=== PATIENT | female | born 1955 | race Caucasian/White ===

== ENCOUNTER → 2021-03-24 09:45 | Outpatient (BNVA) | payer MEDICARE, OTHER, SELFPAY | PROVIDERS: PCP Student in an Organized Health Care Education/Training Program; Visit Provider Internal Medicine Rheumatology | DX: M15.4 Erosive (osteo)arthritis (principal); R76.8 Other specified abnormal immunological findings in serum; Z79.899 Other long term (current) drug therapy; Z11.59 Encounter for screening for other viral diseases; Z11.1 Encounter for screening for respiratory tuberculosis; M19.90 Unspecified osteoarthritis, unspecified site; M45.9 Ankylosing spondylitis of unspecified sites in spine | CPT/HCPCS: 36415; 71046; 72100; 72202; 73130; 73630; 80076; 82306; 82565; 85651; 86140; 86431; 86480; 86704; 86803; 86812; 87340; 99204 ==

== ENCOUNTER 2021-03-24 11:50 | Outpatient (CLI) | payer MEDICARE, OTHER, SELFPAY ==
--- NOTE | 2021-03-24 12:10 | XR_ITS ---
WS: [id number] XR sacroiliac jts m 3V 80739 REASON FOR EXAM: Z79.899 - Other [place] (current[facility] drug therapy FINDINGS: Sacroiliac joints are well defined with thin cortical margins outlining normal appearing joint space and no subchondral abnormality. There is osteophytic spurring and subchondral sclerosis in the acetabulum of both hips. No focal or diffuse bony abnormality. XR/XR sacroiliac jts m 3V 40414 IMPRESSION: No significant abnormality.
--- NOTE | 2021-03-24 12:10 | XR_ITS ---
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 Degenerative disc changes at L4-5 and L5-S1. Facet DJD at all level s. XR/XR lumbar spine 2-3V* 49730 IMPRESSION: 1. No fracture or malalignment. 2. Degenerative changes.
--- NOTE | 2021-03-24 12:10 | XR_ITS ---
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 Normal soft tissues. Minimal degenerative changes in the IP joints and mi dfoot joints. XR/XR foot LT min 3V* 56032 IMPRESSION: 1. Minimal degenerative changes. No fracture or other significant finding.
--- NOTE | 2021-03-24 12:10 | XR_ITS ---
WS: [id number] XR hand LT min 3V* [id number] REASON FOR EXAM: Z79.899 - Other care home (current) drug therapy FINDINGS: Overall osseous density is normal. Mild to moderate irregularity joint space narrowing with subchondral sclerosis involving the DIP and PIP joints of the fingers and thumb. Severe irregular narrowing of the carpal metacarpal joint of the thumb with lateral subluxation of th e metacarpal and large osteophytic spurs. No erosions or periarticular soft tissue abnormality. XR/XR hand LT min 3V* 73658 IMPRESSION: Arthropathic findings compatible with osteoarthritis.
--- NOTE | 2021-03-24 12:10 | XR_ITS ---
WS: [id number] XR chest 2V* 50069 REASON FOR EXAM: Z79.899 - Other assisted (current) drug therapy FINDINGS: The heart and mediastinum are within normal limits. Calcified granulomatous disease is present in both hemithoraces. No active pulmonary parenchymal or p leural disease is noted. Changes of degenerative spondylosis in the mid and lower thoracic spine. Degenerative arthropathy in both glenohumeral joints. XR/XR chest 2V* 05139 IMPRESSION: No acute pulmonary abnormality.
--- NOTE | 2021-03-24 12:10 | XR_ITS ---
WS: [id number] XR hand RT min 3V* 02500 REASON FOR EXAM: Z79.899 - Other [facility] living (current) drug therapy FINDINGS: The density of the osseous structures is normal. Irregular narrowing of the joint spaces with subchondral sclerosis and some marginal osteophytes of t he DIP and PIP joints of the fingers and thumb. No erosions. Similar findings in the carpal metacarpal joint of the thumb. Subluxations at the carpal metacarpal joint of the thumb, metacarpal phalangeal joint of the thumb, a nd the proximal interphalangeal joint of the first finger. XR/XR hand RT min 3V* 43132 IMPRESSION: Arthropathic findings consistent with osteoarthritis.
--- NOTE | 2021-03-24 12:10 | XR_ITS ---
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 No soft tissue foreign bodies are seen. Mild degenerative changes. No sig n of bone destruction. XR/XR foot RT min 3V* 03041 IMPRESSION: 1. No fracture noted. Mild degenerative changes.
[2021-03-24 13:25] LABS: Alanine Aminotransferase 19 U/L (0-33); Albumin Level 4.2 g/dL (3.5-5.2); Alkaline Phosphatase 74 IU/L (35-105); Aspartate Amino Transferase 22 U/L (0-32); C Reactive Protein 0.3 mg/L (0.0-4.9); Globulin 2.3 g/dL (1.3-4.6); Total Bilirubin 0.2 mg/dL (0.15-1.2); Total Protein 6.5 g/dL (6.6-8.7)
[2021-03-24 13:51] LABS: Erythrocyte Sedimentation Rate 6 mm/hr (0-15); Hepatitis B Core AB, Total Non-Reactive (Nonreactive); Hepatitis B Surface Antigen Non-Reactive (Nonreactive); Hepatitis C Virus Antibody Non-Reactive (Nonreactive)
[2021-03-24 14:24] LABS: 25 Hydroxy Vitamin D > 100 ng/mL (30-100)
[2021-03-26 15:12] LABS: Quantiferon Mitogen >10.00 IU/mL; Quantiferon Nil 0.02 IU/mL; Quantiferon Plus TB1 0.01 IU/mL; Quantiferon Plus TB2 0.01 IU/mL; Quantiferon TB Gold NEGATIVE (NEGATIVE)
[2021-03-26 16:37] LABS: HLA-B27 NEGATIVE (NEGATIVE)
== END 2021-03-24 11:51 | disposition home or self-care (01) ==
LOC: RAD 12:01
PROVIDERS: PCP Student in an Organized Health Care Education/Training Program; Visit Provider Internal Medicine Rheumatology
DX: M19.90 Unspecified osteoarthritis, unspecified site (principal); M45.9 Ankylosing spondylitis of unspecified sites in spine; Z79.899 Other long term (current) drug therapy; Z11.59 Encounter for screening for other viral diseases; Z11.1 Encounter for screening for respiratory tuberculosis
CPT/HCPCS: 36415; 71046; 72100; 72202; 73130; 73630; 80076; 82306; 82565; 85651; 86140; 86431; 86480; 86704; 86803; 86812; 87340

== ENCOUNTER → 2021-06-16 12:55 | Outpatient (BNVA) | payer MEDICARE, OTHER, SELFPAY | PROVIDERS: PCP Student in an Organized Health Care Education/Training Program; Visit Provider Internal Medicine Rheumatology | DX: M15.4 Erosive (osteo)arthritis (principal); R76.8 Other specified abnormal immunological findings in serum; C92.10 Chronic myeloid leukemia, BCR/ABL-positive, not having achieved remission; Z77.123 Contact with and (suspected) exposure to radon and other naturally occurring radiation | CPT/HCPCS: 99214 ==

== ENCOUNTER → 2021-10-21 13:18 | Outpatient (BNVA) | payer MEDICARE, OTHER, SELFPAY | PROVIDERS: PCP Student in an Organized Health Care Education/Training Program; Visit Provider Internal Medicine Rheumatology | DX: M15.4 Erosive (osteo)arthritis (principal); M79.18 Myalgia, other site; R76.8 Other specified abnormal immunological findings in serum; Z79.899 Other long term (current) drug therapy | CPT/HCPCS: 99214 ==

== ENCOUNTER 2021-10-21 15:19 | Outpatient (CLI) | payer MEDICARE, OTHER, SELFPAY ==
--- NOTE | 2021-10-21 15:45 | USCV_ITS ---
Mrina Banerjee Age: 66 Gender: F : 1955 Exam Date: 10/21/2021 15:26 Ordering Phys: Ayden Rasheed MD Technologist: Kat Cota [place] [facility] [place]IN IN RT LEG UPPER POSTERIOR LEG HISTORY: Pain in rt leg PROCEDURES: The following venous structures were evaluated: common femoral vein, profunda vein, proximal portion of the greater saphenous vein, superficial femoral vein, and the popliteal vein. In addition, the posterior tibial and peroneal trunk were evaluated. Serial compression, augmentation maneuvers, and spectral Doppler flow evaluation were performed. FINDINGS: Normal 2-D Doppler and augmentation and compressibility throughout the lower extremity venous structures. Additional imaging through the proximal calf veins also reveals no thrombus. Limited evaluation of the greater saphenous vein is patent with no thrombus.. There is a small fluid pocket on rt medial pop fossa. CONCLUSIONS No evidence of right lower extremity DVT. Small sliver of fluid medial right popliteal fossa Misbah Harris MD (Electronically Signed) Final Date: 21 October 2021 17:32 S
== END 2021-10-21 15:20 | disposition home or self-care (01) ==
PROVIDERS: PCP Student in an Organized Health Care Education/Training Program; Visit Provider Internal Medicine Rheumatology
DX: M79.661 Pain in right lower leg (principal)
CPT/HCPCS: 93971

== ENCOUNTER → 2022-02-18 13:35 | Outpatient (BNVA) | payer MEDICARE, SELFPAY | PROVIDERS: PCP Student in an Organized Health Care Education/Training Program; Visit Provider Internal Medicine Rheumatology | DX: M15.4 Erosive (osteo)arthritis (principal); R76.8 Other specified abnormal immunological findings in serum; Z79.899 Other long term (current) drug therapy; C92.10 Chronic myeloid leukemia, BCR/ABL-positive, not having achieved remission | CPT/HCPCS: 99214 ==

== ENCOUNTER → 2022-10-07 14:32 | Outpatient (BNVA) | payer MEDICARE, OTHER, SELFPAY | PROVIDERS: PCP Student in an Organized Health Care Education/Training Program; Visit Provider Internal Medicine Rheumatology | DX: R76.8 Other specified abnormal immunological findings in serum (principal); M15.4 Erosive (osteo)arthritis; Z79.899 Other long term (current) drug therapy; Z85.6 Personal history of leukemia; M62.838 Other muscle spasm | CPT/HCPCS: 99214 ==

== ENCOUNTER → 2023-04-06 10:37 | Outpatient (BNVA) | payer MEDICARE, OTHER, SELFPAY | PROVIDERS: PCP Student in an Organized Health Care Education/Training Program; Visit Provider Internal Medicine Rheumatology | DX: M15.4 Erosive (osteo)arthritis; Z79.899 Other long term (current) drug therapy; Z85.6 Personal history of leukemia; M62.838 Other muscle spasm | CPT/HCPCS: 99214 ==

== ENCOUNTER → 2023-10-05 11:06 | Outpatient (BNVA) | payer MEDICARE, OTHER, SELFPAY | PROVIDERS: PCP Student in an Organized Health Care Education/Training Program; Visit Provider Internal Medicine Rheumatology | DX: R76.8 Other specified abnormal immunological findings in serum (principal); M15.4 Erosive (osteo)arthritis; Z79.899 Other long term (current) drug therapy; Z85.6 Personal history of leukemia | CPT/HCPCS: 99214 ==

== ENCOUNTER → 2024-02-01 11:03 | Outpatient (BNVA) | payer MEDICARE, OTHER, SELFPAY | PROVIDERS: PCP Student in an Organized Health Care Education/Training Program; Visit Provider Internal Medicine Rheumatology | DX: R76.8 Other specified abnormal immunological findings in serum; M15.4 Erosive (osteo)arthritis; Z79.899 Other long term (current) drug therapy; Z85.6 Personal history of leukemia | CPT/HCPCS: 36415; 80076; 82565; 85025; 86140; 99214 ==

== ENCOUNTER → 2024-06-06 10:09 | Outpatient (BNVA) | payer MEDICARE, OTHER, SELFPAY | PROVIDERS: PCP Student in an Organized Health Care Education/Training Program; Visit Provider Internal Medicine Rheumatology | DX: M15.4 Erosive (osteo)arthritis (principal); R76.8 Other specified abnormal immunological findings in serum; Z79.899 Other long term (current) drug therapy; Z85.6 Personal history of leukemia | CPT/HCPCS: 99214 ==

== ENCOUNTER → 2025-04-03 10:48 | Outpatient (BNVA) | payer MEDICARE, OTHER, SELFPAY | PROVIDERS: PCP Student in an Organized Health Care Education/Training Program; Visit Provider Internal Medicine Rheumatology | DX: R76.8 Other specified abnormal immunological findings in serum (principal); M15.4 Erosive (osteo)arthritis; Z79.899 Other long term (current) drug therapy; Z85.6 Personal history of leukemia; M06.041 Rheumatoid arthritis without rheumatoid factor, right hand; M06.042 Rheumatoid arthritis without rheumatoid factor, left hand | CPT/HCPCS: 99214 ==

== ENCOUNTER 2025-04-13 15:08 | Outpatient (CLI) | payer MEDICARE, OTHER, SELFPAY ==
--- NOTE | 2025-04-13 15:30 | XR_ITS ---
WS: [id number] DEXA (DUAL ENERGY X-RAY ABSORPTIOMETRY) Bone mineral density was performed using a [employer] machine. HISTORY: T14.8XXA - Other injury of unspecified body region, initi... COMPARISON: None available. Lumbar spine BMD (L1-L4): 1.131 g/cm2 T score: -0.4 Z score: 1.0 Total hip BMD: Left: 0.760 g/cm2. T score: -2.0 Z score: -0.7 Right: 0.757 g/cm2. T score: -2.0 Z score: -0.7 10 year probability of a major osteoporotic fracture is 30.8%. XR/XR DEXA axial skeleton* 81816 IMPRESSION: OSTEOPENIA based upon the WHO classification for females.
== END 2025-04-13 15:09 | disposition home or self-care (01) ==
LOC: RAD 15:09
PROVIDERS: PCP Student in an Organized Health Care Education/Training Program; Visit Provider Internal Medicine Rheumatology
DX: Z13.820 Encounter for screening for osteoporosis (principal); T14.8XXA Other injury of unspecified body region, initial encounter; X58.XXXA Exposure to other specified factors, initial encounter
CPT/HCPCS: 77080